=== PATIENT | male | born 1995 | race African-American/Black ===

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

== ENCOUNTER 2019-07-14 13:07 | Emergency (ER) | payer OTHER ==
[2019-07-14 13:26] VITALS: BP 137/83; PULSE 79; RESP 16; TEMP 98.1
--- NOTE | 2019-07-14 13:34 | ED ---
General Adult HPI - General Chief complaint: ENT Stated complaint: Ear pain Time Seen by Provider: 07/14/19 13:26 Source: patient Mode of arrival: ambulatory Limitations: no limitations - History of Present Illness Initial comments: Dictation was produced using [employer] dictation software. please excuse any grammatical, word or spelling errors. This patient was cared for during a federal and state declared state of emergency secondary to Covid 19 Chief Complaint: 23-year-old male with right ear discomfort History of Present Illness: Patient 23-year-old male presents today with right ear discomfort. Patient states that he started to feel quite about 7 days ago. Today he felt his right ear complete occlusion of the year. Having difficulty hearing that side. Patient has no history of ear issues. No history of ear infections. Denies any throat pain. The ROS documented in this emergency department record has been reviewed and confirmed by me. Those systems with pertinent positive or negative responses have been documented in the HPI. All other systems are other negative and/or noncontributory. PHYSICAL EXAM: General Impression: Alert and oriented x3, not in acute distress HEENT: Normocephalic atraumatic, extra-ocular movements intact, pupils equal and reactive to light bilaterally, mucous membranes moist. Ears: Impacted cerumen to the right external auditory canal Cardiovascular: Heart regular rate and rhythm Chest: Able to complete full sentences, no retractions, no tachypnea Abdomen: abdomen soft, non-tender, non-distended, no organomegaly Musculoskeletal: Pulses present and equal in all extremities, no peripheral edema Motor: no focal deficits noted Neurological: CN II-XII grossly intact, no focal motor or sensory deficits noted Skin: Intact with no visualized rashes Psych: Normal affect and mood ED course: 23-year-old male with click or presentation consistent with impacted cerumen to the right ear. Vital signs upon arrival are within acceptable limits. He was lavaged. Patient feels much better. Patient will be discharged. - Related Data Previous Rx's Medication Instructions Recorded Sulfamethox-Tmp 800-160Mg [Bactrim 1 each PO Q12HR 7 Days tab 11/07/16 DS 800-160 mg] Triamcinolone 0.5% Cream [Kenalog 1 applic TOPICAL BID #15 gm 11/07/16 0.5% Cream] predniSONE [Deltasone] 20 mg PO BID #10 tab 11/07/16 Allergies Allergy/AdvReac Type Severity Reaction Status Date / Time red dye Allergy Rash/Hives Verified 07/14/19 13:26 Review of Systems ROS Statement: Those systems with pertinent positive or pertinent negative responses have been documented in the HPI. ROS Other: All systems not noted in ROS Statement are negative. Past Medical History Past Medical History: Asthma History of Any Multi-Drug Resistant Organisms: None Reported Past Surgical History: No Surgical Hx Reported Past Psychological History: No Psychological Hx Reported Smoking Status: Never smoker Past Alcohol Use History: None Reported Past Drug Use History: None Reported General Exam Limitations: no limitations Course Vital Signs 07/14/19 13:24 Temperature 98.1 F Pulse Rate 79 Respiratory 16 Rate Blood Pressure 137/83 O2 Sat by Pulse 99 Oximetry Procedures - Ear Wax Removal Right Ear Cerumenolytic Used: other (ear pick) Ear Canal Irrigated by: CAROL ANN Ear Canal Irrigated With: [place] Results: Re-examined: some cerumen remains TM Visible: TM(s) intact, normal appearance Ear Canal: atraumatic Patient Tolerated Procedure: well Complications: no problems Disposition Clinical Impression: Impacted cerumen of right ear Disposition: HOME SELF-CARE Condition: Good Instructions (If sedation given, give patient instructions): Earache (ED) Is patient prescribed a controlled substance at d/c from ED?: No Referrals: None,Stated [Primary Care Provider] - 1-2 days Time of Disposition: 13:34
== END 2019-07-14 13:56 | disposition home or self-care (01) ==
LOC: EC 13:07
DX: H61.21 Impacted cerumen, right ear (principal); Z91.048 Other nonmedicinal substance allergy status
CPT/HCPCS: 69209; 99282

== ENCOUNTER 2020-04-30 23:45 | Emergency (ER) | payer OTHER ==
[2020-04-30 23:55] VITALS: RESP 16
[2020-05-01 00:25] LABS: Basophils # (A) 0.1 k/uL (0-0.2); Basophils % (A) 1 %; Eosinophils # (A) 0.2 k/uL (0-0.7); Eosinophils % (A) 2 %; HCT 44.6 % (39.0-53.0); HGB 15.5 gm/dL (13.0-17.5); Lymphocytes # (A) 2.5 k/uL (1.0-4.8); Lymphocytes % (A) 35 %; MCH 29.9 pg (25.0-35.0); MCHC 34.8 g/dL (31.0-37.0); Mean Platelet Volume 7.6; Monocytes # (A) 0.6 k/uL (0-1.0); Monocytes % (A) 8 %; Neutrophils # (A) 3.8 k/uL (1.3-7.7); Neutrophils % (A) 52 %; Platelet Count 255 k/uL (150-450); RBC 5.19 m/uL (4.30-5.90); RDW 12.7 % (11.5-15.5); WBC 7.2 k/uL (3.8-10.6)
[2020-05-01 00:26] LABS: Appearance,Urine Clear (Clear); Bilirubin,Urine Negative (Negative); Blood,Urine Negative (Negative); Color,Urine Light Yellow; Glucose,Urine (UA) Negative (Negative); Ketones,Urine Negative (Negative); Leukocyte Esterase,Urine Negative (Negative); Nitrite,Urine Negative (Negative); PH, Urine 6.5 (5.0-8.0); Protein,Urine Negative (Negative); Specific Gravity,Urine 1.012 (1.001-1.035); Urobilinogen,Urine <2.0 mg/dL (<2.0)
--- NOTE | 2020-05-01 00:26 | ED ---
Abdominal Pain HPI - General Chief Complaint: Abdominal Pain Stated Complaint: Flank pain Time Seen by Provider: 04/30/20 23:55 Source: patient Mode of arrival: ambulatory Limitations: no limitations - History of Present Illness MD Complaint: flank pain Onset/Timin -: week(s) Location: L flank Radiation: none Migration to: no migration Severity: moderate Quality: aching Consistency: constant Improves With: nothing Worsens With: nothing Associated Symptoms: denies other symptoms - Related Data Previous Rx's Medication Instructions Recorded Sulfamethox-Tmp 800-160Mg [Bactrim 1 each PO Q12HR 7 Days tab 11/07/16 DS 800-160 mg] Triamcinolone 0.5% Cream [Kenalog 1 applic TOPICAL BID #15 gm 11/07/16 0.5% Cream] predniSONE [Deltasone] 20 mg PO BID #10 tab 11/07/16 Allergies Allergy/AdvReac Type Severity Reaction Status Date / Time red dye Allergy Rash/Hives Verified 04/30/20 23:51 Review of Systems ROS Statement: Those systems with pertinent positive or pertinent negative responses have been documented in the HPI. ROS Other: All systems not noted in ROS Statement are negative. Constitutional: Denies: fever, chills Respiratory: Denies: cough, dyspnea Cardiovascular: Denies: chest pain, palpitations, edema, syncope Gastrointestinal: Reports: as per HPI. Denies: nausea, vomiting, diarrhea, constipation, melena, hematochezia Genitourinary: Reports: frequency. Denies: dysuria, hematuria, discharge, testicular pain, testicular mass Musculoskeletal: Denies: back pain Skin: Denies: rash Neurological: Denies: headache, weakness, numbness, paresthesias Past Medical History Past Medical History: No Reported History History of Any Multi-Drug Resistant Organisms: None Reported Past Surgical History: No Surgical Hx Reported Past Psychological History: No Psychological Hx Reported Smoking Status: Current every day smoker Past Alcohol Use History: None Reported Past Drug Use History: None Reported General Exam Limitations: no limitations General appearance: alert, in no apparent distress Head exam: Present: atraumatic, normocephalic Eye exam: Present: normal appearance. Absent: scleral icterus, conjunctival injection Respiratory exam: Present: normal lung sounds bilaterally. Absent: respiratory distress, wheezes, rales, rhonchi, stridor Cardiovascular Exam: Present: regular rate, normal rhythm, normal heart sounds. Absent: systolic murmur, diastolic murmur, rubs, gallop GI/Abdominal exam: Present: soft. Absent: distended, tenderness, guarding, rebound, rigid, mass Extremities exam: Present: normal inspection, normal capillary refill. Absent: pedal edema, calf tenderness Back exam: Present: normal inspection. Absent: CVA tenderness (R), CVA tenderness (L) Neurological exam: Present: alert Skin exam: Present: warm, dry, intact, normal color. Absent: rash Course Vital Signs 04/30/20 23:51 Temperature 98.6 F Pulse Rate 72 Respiratory 16 Rate Blood Pressure 139/81 O2 Sat by Pulse 98 Oximetry Medical Decision Making - Lab Data Result diagrams: 05/01/20 00:10 05/01/20 00:10 Lab Results 05/01/20 05/01/20 05/01/20 Range/Units 00:10 00:10 00:10 WBC 7.2 (3.8-10.6) k/uL RBC 5.19 (4.30-5.90) m/uL Hgb 15.5 (13.0-17.5) gm/dL Hct 44.6 (39.0-53.0) % MCV 86.0 (80.0-100.0) fL MCH 29.9 (25.0-35.0) pg MCHC 34.8 (31.0-37.0) g/dL RDW 12.7 (11.5-15.5) % Plt Count 255 (150-450) k/uL MPV 7.6 Neutrophils % 52 % Lymphocytes % 35 % Monocytes % 8 % Eosinophils % 2 % Basophils % 1 % Neutrophils # 3.8 (1.3-7.7) k/uL Lymphocytes # 2.5 (1.0-4.8) k/uL Monocytes # 0.6 (0-1.0) k/uL Eosinophils # 0.2 (0-0.7) k/uL Basophils # 0.1 (0-0.2) k/uL Sodium 138 (137-145) mmol/L Potassium 4.1 (3.5-5.1) mmol/L Chloride 100 (98-107) mmol/L Carbon Dioxide 27 (22-30) mmol/L Anion Gap 11 mmol/L BUN 15 (9-20) mg/dL Creatinine 0.69 (0.66-1.25) mg/dL Est GFR (CKD-EPI)AfAm >90 (>60 ml/min/1.73 sqM) Est GFR (CKD-EPI)NonAf >90 (>60 ml/min/1.73 sqM) Glucose 100 H (74-99) mg/dL Calcium 10.3 H (8.4-10.2) mg/dL Total Bilirubin 0.8 (0.2-1.3) mg/dL AST 95 H (17-59) U/L ALT 66 H (4-49) U/L Alkaline Phosphatase 55 (38-126) U/L Total Protein 8.6 H (6.3-8.2) g/dL Albumin 5.0 (3.5-5.0) g/dL Amylase 66 (30-110) U/L Lipase 130 (23-300) U/L Urine Color Light Yellow Urine Appearance Clear (Clear) Urine pH 6.5 (5.0-8.0) Ur Specific Milnor 1.012 (1.001-1.035) Urine Protein Negative (Negative) Urine Glucose (UA) Negative (Negative) Urine Ketones Negative (Negative) Urine Blood Negative (Negative) Urine Nitrite Negative (Negative) Urine Bilirubin Negative (Negative) Urine Urobilinogen <2.0 (<2.0) mg/dL Ur Leukocyte Esterase Negative (Negative) Disposition Clinical Impression: Left flank pain, Fatty infiltration of liver Disposition: HOME SELF-CARE Condition: Good Instructions (If sedation given, give patient instructions): Flank Pain (ED), Non-Alcoholic Fatty Liver Disease (ED) Is patient prescribed a controlled substance at d/c from ED?: No Referrals: None,Stated [Primary Care Provider] - 1-2 days Carolyn Hays MD [REFERRING] - 1-2 days
[2020-05-01 00:35] LABS: ALT 66 U/L (4-49); AST 95 U/L (17-59); African American GFR (CKD) >90 (>60 ml/min/1.73 sqM); Alkaline Phosphatase 55 U/L (38-126); Amylase 66 U/L (30-110); Anion Gap 11 mmol/L; Blood Urea Nitrogen 15 mg/dL (9-20); Calcium 10.3 mg/dL (8.4-10.2); Carbon Dioxide 27 mmol/L (22-30); Chloride 100 mmol/L (98-107); Glucose 100 mg/dL (74-99); Lipase 130 U/L (23-300); Non-African American GFR(CKD) >90 (>60 ml/min/1.73 sqM); Potassium 4.1 mmol/L (3.5-5.1); Sodium 138 mmol/L (137-145); Total Bilirubin 0.8 mg/dL (0.2-1.3); Total Protein 8.6 g/dL (6.3-8.2)
--- NOTE | 2020-05-01 02:25 | US ---
EXAM: US Abdomen Complete CLINICAL HISTORY: Reason: attention RUQ, abdominal pain RUQ, abdominal pain. Pain x 5 days. TECHNIQUE: Real-time ultrasound of the abdomen with image documentation. COMPARISON: No relevant prior studies available. FINDINGS: Limitations: Somewhat limited exam due to bowel gas and patient body habitus. Liver: Mildly heterogeneous coarse echotexture of the liver. No intrahepatic bile duct dilation. Liver 16.6 cm. Gallbladder: Multiple folds within the gallbladder, possible phrygian cap. Internal echoes within the gallbladder may represent sludge. No obvious shadowing stones. No wall thickening or pericholecystic fluid. Negative sonographic Leo sign. Common bile duct: Common bile duct not visualized due to bowel gas. Pancreas: Unremarkable as visualized. Kidneys: Right kidney 10.6 cm in length. No hydronephrosis. No stones. Spleen: Unremarkable. No splenomegaly. Aorta: Unremarkable. No aneurysm. Inferior vena cava: Unremarkable. IMPRESSION: 1. Possible gallbladder sludge. No stones or evidence of acute cholecystitis. 2. Mildly heterogeneous coarse echotexture of the liver. May represent fatty liver or other hepatic infiltrative process 3. Common bile duct not visualized due to bowel gas.
[2020-05-01 03:15] VITALS: BP 128/71; PULSE 68; TEMP 98
== END 2020-05-01 03:08 | disposition home or self-care (01) ==
LOC: EC 23:45
DX: K76.0 Fatty (change of) liver, not elsewhere classified (principal); R10.9 Unspecified abdominal pain; F17.200 Nicotine dependence, unspecified, uncomplicated; Z91.09 Other allergy status, other than to drugs and biological substances
CPT/HCPCS: 36415; 76705; 80053; 81003; 82150; 83690; 85025; 99284

== ENCOUNTER 2020-06-09 23:02 | Emergency (ER) | payer OTHER ==
[2020-06-09 23:46] VITALS: TEMP 98
--- NOTE | 2020-06-10 01:34 | ED ---
Chest Pain HPI - General Chief Complaint: Chest Pain Stated Complaint: Chest pain Time Seen by Provider: 06/10/20 01:16 Source: patient, RN notes reviewed Mode of arrival: ambulatory Limitations: no limitations - History of Present Illness Initial Comments: 24-year-old male presented emergency department complaining of palpitations over the last couple weeks while exercising and running. He notes that he's been increasing is mild weekly. He notes that he feels like his heart is pounding after doing sprints intervals. He wanted to come emergency room just to get checked out. He was in no pain or distress whatsoever bed during exam and interview. He denied any chest pain currently. He denied any history of heart issues and his family that he knows of. He denied any chest pain first breath headache nausea vomiting diarrhea constipation fever fatigue chills - Related Data Previous Rx's Medication Instructions Recorded Sulfamethox-Tmp 800-160Mg [Bactrim 1 each PO Q12HR 7 Days tab 11/07/16 DS 800-160 mg] Triamcinolone 0.5% Cream [Kenalog 1 applic TOPICAL BID #15 gm 11/07/16 0.5% Cream] predniSONE [Deltasone] 20 mg PO BID #10 tab 11/07/16 Allergies Allergy/AdvReac Type Severity Reaction Status Date / Time red dye Allergy Rash/Hives Verified 06/09/20 23:46 Review of Systems ROS Statement: Those systems with pertinent positive or pertinent negative responses have been documented in the HPI. ROS Other: All systems not noted in ROS Statement are negative. EKG Findings - EKG Comments: EKG Findings:: Ventricular rate 76 bpm, KS interval 170s milliseconds, QRS duration 78 ms, QT/QTC 354/398 ms, PRT axes 70/37/60. Normal sinus rhythm, early repolarization, normal ECG. Past Medical History Past Medical History: No Reported History History of Any Multi-Drug Resistant Organisms: None Reported Past Surgical History: No Surgical Hx Reported Past Psychological History: No Psychological Hx Reported Smoking Status: Former smoker Past Alcohol Use History: None Reported Past Drug Use History: None Reported General Exam Limitations: no limitations General appearance: alert, in no apparent distress, obese Head exam: Present: atraumatic, normocephalic, normal inspection ENT exam: Present: normal exam, mucous membranes moist Neck exam: Present: normal inspection. Absent: tenderness, meningismus, lymphadenopathy Respiratory exam: Present: normal lung sounds bilaterally. Absent: respiratory distress, wheezes, rales, rhonchi, stridor Cardiovascular Exam: Present: regular rate, normal rhythm, normal heart sounds. Absent: systolic murmur, diastolic murmur, rubs, gallop, clicks GI/Abdominal exam: Present: soft, normal bowel sounds. Absent: distended, tenderness, guarding, rebound, rigid Extremities exam: Present: normal inspection, full ROM, normal capillary refill. Absent: tenderness, pedal edema, joint swelling, calf tenderness Neurological exam: Present: alert, oriented X3, CN II-XII intact Psychiatric exam: Present: normal affect, normal mood Skin exam: Present: warm, dry, intact, normal color. Absent: rash Course Vital Signs 06/09/20 06/10/20 23:42 01:27 Temperature 98.0 F Pulse Rate 82 83 Respiratory 20 18 Rate Blood Pressure 151/74 154/86 O2 Sat by Pulse 99 98 Oximetry Chest Pain MDM - MDM 22-year-old male complaining of palpitations and pounding heart while running and doing splint intervals. Cardiac labs, EKG, chest x-ray ordered. Chest x-ray negative for any acute cardiopulmonary process. Labs unremarkable. Case discussed with Dr. Chin, patient can discharge home. Disposition Clinical Impression: Palpitations, Exercise-induced tachycardia Disposition: HOME SELF-CARE Condition: Stable Instructions (If sedation given, give patient instructions): Heart Palpitations (ED) Additional Instructions: Please return to the Emergency Department if symptoms worsen or any other concerns. Avoid splint circuits to avoid pounding heart rate and palpitations. Continue to exercise as it is good for your heart and respiratory system but do not push himself too hard to the point of chest pain. Follow-up with primary care in 3-5 days. Avoid using any illegal substances or drugs as he can increase anxiety and heart rate. Is patient prescribed a controlled substance at d/c from ED?: No Referrals: None,Stated [Primary Care Provider] - 1-2 days Time of Disposition: 02:48
[2020-06-10 01:36] VITALS: RESP 18
--- NOTE | 2020-06-10 02:09 | XR ---
EXAM: XR Chest, 2 Views CLINICAL HISTORY: ITS.REASON XR Reason: Chest Pain TECHNIQUE: Frontal and lateral views of the chest. COMPARISON: No relevant prior studies available. FINDINGS: Lungs: Unremarkable. No consolidation. Pleural space: Unremarkable. No pneumothorax. Heart: Unremarkable. No cardiomegaly. Mediastinum: Unremarkable. Bones/joints: Unremarkable. IMPRESSION: No acute pulmonary process.
[2020-06-10 02:13] LABS: Basophils % (A) 0 %; Eosinophils # (A) 0.1 k/uL (0-0.7); Eosinophils % (A) 2 %; HGB 15.2 gm/dL (13.0-17.5); Lymphocytes # (A) 2.7 k/uL (1.0-4.8); Lymphocytes % (A) 39 %; MCH 29.5 pg (25.0-35.0); MCHC 33.9 g/dL (31.0-37.0); Mean Platelet Volume 7.6; Monocytes # (A) 0.5 k/uL (0-1.0); Monocytes % (A) 8 %; Neutrophils # (A) 3.6 k/uL (1.3-7.7); Neutrophils % (A) 50 %; Platelet Count 242 k/uL (150-450); RBC 5.17 m/uL (4.30-5.90); RDW 13.3 % (11.5-15.5); WBC 7.1 k/uL (3.8-10.6)
[2020-06-10 02:23] LABS: Appearance,Urine Clear (Clear); Bilirubin,Urine Negative (Negative); Blood,Urine Negative (Negative); Color,Urine Yellow; Glucose,Urine (UA) Negative (Negative); Ketones,Urine Negative (Negative); Leukocyte Esterase,Urine Negative (Negative); Nitrite,Urine Negative (Negative); PH, Urine 6.5 (5.0-8.0); Protein,Urine Negative (Negative); Specific Gravity,Urine 1.024 (1.001-1.035); Urobilinogen,Urine <2.0 mg/dL (<2.0)
[2020-06-10 02:34] LABS: ALT 38 U/L (4-49); AST 25 U/L (17-59); African American GFR (CKD) >90 (>60 ml/min/1.73 sqM); Albumin 4.6 g/dL (3.5-5.0); Alkaline Phosphatase 63 U/L (38-126); Anion Gap 8 mmol/L; Blood Urea Nitrogen 12 mg/dL (9-20); Calcium 9.6 mg/dL (8.4-10.2); Carbon Dioxide 29 mmol/L (22-30); Chloride 102 mmol/L (98-107); Glucose 106 mg/dL (74-99); Non-African American GFR(CKD) >90 (>60 ml/min/1.73 sqM); Potassium 4.6 mmol/L (3.5-5.1); Sodium 139 mmol/L (137-145); Total Bilirubin 0.3 mg/dL (0.2-1.3); Total Protein 7.8 g/dL (6.3-8.2)
[2020-06-10 03:01] VITALS: BP 128/90; PULSE 76
== END 2020-06-10 03:00 | disposition home or self-care (01) ==
LOC: EC 23:02
DX: R00.2 Palpitations (principal); R00.0 Tachycardia, unspecified; Z87.891 Personal history of nicotine dependence
CPT/HCPCS: 36415; 71046; 80053; 81003; 84484; 85025; 93005; 99285

== ENCOUNTER 2021-12-15 15:24 | Emergency (ER) | payer OTHER ==
[2021-12-15] MEDS ORDERED: LIDOCAINE 1% INJ 10MG/ML (20 ML MDV) SQ ONE (17:35)
[2021-12-15] MEDS ORDERED: SULFAMETHOX-TMP 800-160MG 1 EACH TAB PO STA (17:36)
--- NOTE | 2021-12-15 17:42 | ED ---
Skin/Abscess/FB HPI - General Chief complaint: Skin/Abscess/Foreign Body Stated complaint: lump on right side of neck Time Seen by Provider: 12/15/21 17:14 Source: patient, RN notes reviewed Mode of arrival: ambulatory Limitations: no limitations - History of Present Illness Initial comments: This is a 26-year-old male who presents to the emergency department for a lump on the right side of his neck. States that this has been present for the last month, and appears to be underneath one of his moles. He has noticed this getting bigger and he believes that it is giving him headaches. He has not had any drainage from the area. Denies any fevers, chills, sore throat, cough, dyspnea, chest pain, palpitations, abdominal pain, nausea, vomiting, diarrhea, or back pain. MD complaint: abscess/boil Onset/Timin -: month(s) Location: neck - Related Data Previous Rx's Medication Instructions Recorded Sulfamethox-Tmp 800-160Mg [Bactrim 1 tab PO Q12HR 10 Days #20 tab 12/15/21 DS 800-160 mg] Allergies Allergy/AdvReac Type Severity Reaction Status Date / Time red dye Allergy Rash/Hives Verified 12/15/21 17:42 Review of Systems ROS Statement: Those systems with pertinent positive or pertinent negative responses have been documented in the HPI. ROS Other: All systems not noted in ROS Statement are negative. Past Medical History Past Medical History: No Reported History History of Any Multi-Drug Resistant Organisms: None Reported Past Surgical History: No Surgical Hx Reported Past Psychological History: No Psychological Hx Reported Smoking Status: Former smoker Past Alcohol Use History: None Reported Past Drug Use History: None Reported General Exam Limitations: no limitations General appearance: alert, in no apparent distress Head exam: Present: atraumatic, normocephalic, normal inspection Respiratory exam: Present: normal lung sounds bilaterally. Absent: respiratory distress, wheezes, rales, rhonchi, stridor Cardiovascular Exam: Present: regular rate, normal rhythm, normal heart sounds. Absent: systolic murmur, diastolic murmur, rubs, gallop, clicks Neurological exam: Present: alert, oriented X3, CN II-XII intact Psychiatric exam: Present: normal affect, normal mood Skin exam: Present: other (Fluctuant bump underneath a nevus on the right side of the neck. No obvious punctum or active drainage.) Course Vital Signs 12/15/21 16:34 Temperature 98 F Pulse Rate 90 Respiratory 16 Rate Blood Pressure 145/83 O2 Sat by Pulse 100 Oximetry Procedures - Incision & Drainage Consent Obtained: verbal consent Indication: abscess Site: neck Size (cm): 1 Anesthetic Used: lidocaine 1% Amount (mLs): 2 I&D Cleaning Method: Alcohol Wipe Sterile Field Used?: Yes Scalpel Used: #11 Needle Aspiration Performed?: No Irrigation Performed?: Yes I&D Drainage Obtained: Blood Culture Obtained?: No Medical Decision Making - Medical Decision Making This is a 26-year-old male who presents to the emergency department for an abscess on the neck. Discussed with the patient that due to the overlying mole, it is difficult to evaluate whether or not this is ready to be incised. Patient requests we proceed with I&D. He was given the first dose of Bactrim in the emergency department. Only blood was expressed from the I&D, there was no purulence or other material removed from the abscess. Perception for Bactrim provided to be taken for 10 days. Also advised to apply warm compresses. Information for dermatology follow-up provided, he is instructed to contact them in the morning for a follow-up appointment to discuss additional management as indicated. Return precautions reviewed in depth, the patient is instructed to return to the emergency department with any new, worsening, or concerning symptoms. Patient verbalized understanding. This case was discussed in detail with the attending ED physician. Presentation, findings, and treatment plan discussed in detail as well. Disposition Clinical Impression: Abscess of neck Disposition: HOME SELF-CARE Instructions (If sedation given, give patient instructions): Abscess Incision and Drainage (ED), Abscess (ED) Additional Instructions: Return to the emergency department with any new, worsening, or concerning symptoms. Take the antibiotic as prescribed for 10 days. Apply warm compresses. Contact dermatology as listed below for a follow-up appointment. Prescriptions: Sulfamethox-Tmp 800-160Mg [Bactrim DS 800-160 mg] 1 tab PO Q12HR 10 Days #20 tab Is patient prescribed a controlled substance at d/c from ED?: No Referrals: None,Stated [Primary Care Provider] - 1-2 days Wyatt Gu MD [STAFF PHYSICIAN] - 1-2 days
[2021-12-15 18:32] VITALS: BP 131/71; PULSE 73; RESP 18; TEMP 99.1
== END 2021-12-15 18:32 | disposition home or self-care (01) ==
LOC: EC 15:24
DX: L02.11 Cutaneous abscess of neck (principal); Z87.891 Personal history of nicotine dependence; Z91.041 Radiographic dye allergy status
CPT/HCPCS: 99282; 10060; J2001